=== PATIENT | female | born 1960 | race Caucasian/White ===

== ENCOUNTER 2023-02-11 06:57 | Day surgery (SDC) | payer OTHER, SELFPAY ==
--- NOTE | 2023-02-10 08:44 | HO.ANESPROP2 ---
Documented by User: Mirta Cool NP 02/10/23 08:44 HPI - Anesthesia Eval Consult details Narrative: 62yo F for Colonoscopy [facility] Past Medical History Medical History Diverticulosis Elevated cholesterol Thyroid nodule Vertigo Vitamin D deficiency Surgical History Surgical History Hx of colonoscopy Social History Social History Patient Tobacco Use Status: Never used Tobacco Are you DNR?: No Advance Directives: No Advance Directives Information Provided: Yes Nutrition Risks: No Nutritional Risk Meds Allergies Allergy/AdvReac Type Severity Reaction Status Date / Time Penicillins [PCN] Allergy Unknown Verified 02/11/23 07:21 sulfacetamide Allergy Unknown Verified 02/11/23 07:21 [From Sulfacet-R] sulfur [From Sulfacet-R] Allergy Unknown Verified 02/11/23 07:21 Home Medications Medication Instructions Recorded Confirmed Last Taken Type cholecalciferol (vitamin D3) 50 50 mcg PO DAILY 02/10/23 02/10/23 Unknown History mcg (2,000 unit) tablet (Vitamin D3) conjugated estrogens 0.625 mg/gram 0.625 mg vaginal DAILY 02/10/23 02/10/23 Unknown History vaginal cream (Premarin) Exam Exam Date and Time: February 10, 2023 0844 Assessment and Plan Assessment Anesthesia Assessment: Chart Reviewed Documented by User: Epifanio Carvalho MD 02/11/23 07:29 [facility] Past Medical History Medical History Diverticulosis Elevated cholesterol Thyroid nodule Vertigo Vitamin D deficiency Family History Family history of problems with anesthesia: No Surgical History Surgical History Hx of colonoscopy History of Problems with Anesthesia: No Social History Social History Patient Tobacco Use Status: Never used Tobacco Are you DNR?: No Advance Directives: No Advance Directives Information Provided: Yes Nutrition Risks: No Nutritional Risk Meds Allergies Allergy/AdvReac Type Severity Reaction Status Date / Time Penicillins [PCN] Allergy Unknown Verified 02/11/23 07:21 sulfacetamide Allergy Unknown Verified 02/11/23 07:21 [From Sulfacet-R] sulfur [From Sulfacet-R] Allergy Unknown Verified 02/11/23 07:21 Home Medications Medication Instructions Recorded Confirmed Last Taken Type cholecalciferol (vitamin D3) 50 50 mcg PO DAILY 02/10/23 02/10/23 Unknown History mcg (2,000 unit) tablet (Vitamin D3) conjugated estrogens 0.625 mg/gram 0.625 mg vaginal DAILY 02/10/23 02/10/23 Unknown History vaginal cream (Premarin) Exam Airway Mallampati Class: II TM Dist: >3cm Neck ROM: Full Heart: rrr Lungs: cta Assessment and Plan Assessment Anesthesia Assessment: Anesthesia Plan Discussed Final Anesthetic Review Family History of Problems with Anesthesia: No History of Problems with Anesthesia: No NPO: Yes ASA Class: II Final Preanesthetic Review: No Changes in Pt Med Stat, Meds/Allgs Chart Reviewed, Consent Obtained/Reviewed and Anes Risks/Benef Reviewed Patient Risk: Low Procedure Risk: Low Anesthetic Plan Anesthetic Plan: MAC: and Agree w/ Assess. and Plan Disposition: Standard PACU
[2023-02-11 06:07] VITALS: BMI 21.5
--- OUTSIDE RECORDS SUMMARY | 2023-02-11 07:00 | XMS_ITS | Continuity of Care Document ---
Author Name Unknown Organization [facility] Primary Car e Helper Address [address] [place] [address]- Care Team Providers Care Youth Corrections Officer Name Role Phone Selena SANTIAGO, Yolande Bellamy Primary Care Physician [phone] Encounter [facility] Date(s): 09/02/22 - 10/02/22 [facility] Care [place]essa [address] [place], [place] [address] Allergies, Adverse Reactions, Alerts Substance Reaction Severity Status cephalosporins Rash Active penicillins Active sulfa drugs Rash Active Immunizations Given and Recorded Vaccine Date Status Refusal Reason influenza virus vaccine, inactivated 06/30/22 Arnoldo rded influenza virus vaccine, inactivated 07/14/21 Arnoldo rded influenza virus vaccine, inactivated 07/04/20 Arnoldo rded influenza virus vaccine, inactivated 1 07/03/18 Re corded influenza virus vaccine, inactivated 2 07/25/17 Re corded SARS-CoV-2 (COVID-19) mRNA BNT-162b2 vac 07/29/21 Recorded SARS-CoV-2 (COVID-19) mRNA BNT-162b2 vac 10/07/20 Recorded SARS-CoV-2 (COVID-19) mRNA BNT-162b2 vac 3 09/16/20 Recorded tetanus/diphtheria/pertussis, acel(Tdap) 08/22/17 Given Adacel (Tdap) (oldterm) 4 05/18/07 Recorded 1Result Comment: [09/11/2018] pt had at wing through work 2Result Comment: [07/26/2017] employee health services 3Result Comment: Given by [facility] Pfizer SARS-COV-2 (COVID-19) vaccine, mRNA, spike protein, LNP, preservative free 4Location History: [employer] Medications D3 with Calcium By Mouth, Daily, 0 Refills, Maintenance, 09/30/20 9:51:00 EST, Partial fill upon patient request ifthe prescription is for a schedule II opioid drug. Start Date: 09/30/20 Status: Ordered ibuprofen 400 mg oral tablet 400 mg, 1, tablet, By Mouth, Every 6 hours, PRN, # 90 tablet, Refills 1, Tot. Refills 1, Maintenance, Pain , Mild, 09/30/20 10:53:00 EST, Route to Pharmacy Electronically, [facility]/pharmacy #[id number], Partialfill upon patient request if the prescription is fo... Start Date: 09/30/20 Status: Ordered Premarin Vaginal 0.625 mg/gm cream with applicator See Instructions, INSERT 1 GRAM VAGINALLY AT BEDTIME 2-3 TIMES PER WEEK, # 30 Gm, 5 Refills, Soft Stop, 05/24/22 12:58:00 EDT, [facility]/pharmacy #[id number], INSERT 1 GRAM VAGINALLY AT BEDTIME 2-3 TIMES PER WEEK, 170, cm, 09/30/20 9:40:00 EST, Height Start Date: 05/24/22 Status: Ordered Vitamin D3 2000 intl units oral capsule 1 capsule = 2,000 International_Units, By Mouth, Daily, # 60 capsule, 0 Refills, Maintenance, 09/30/20 9:50:00 EST, Capsule, Partial fill upon patient request if the prescription is for a schedule IIopioid drug. Start Date: 09/30/20 Status: Ordered Problem List Condition Confirmation Course Effective Dates Status H ealth Status Informant Diverticulosis of colon Confirmed Active Hyperlipidemia Confirmed Active Elevated glucose level Confirmed Active Thyroid nodule Confirmed Active Vertigo Confirmed Active Vitamin d deficiency Confirmed Active Social History Social History Type Response Smoking Status Never smoker entered on: 04/08/16 Sex Patient Care team information Care Team Personnel Name: Selena SANTIAGO, Yolande Bellamy Position: [facility] Primary Care Physician Member Role: PCP Address: Address: [address] [place] [address]- Care Team Related Persons Name: COMFORT MAYURI Address: [address] [address]
--- OUTSIDE RECORDS SUMMARY | 2023-02-11 07:00 | XMS_ITS | Continuity of Care Document ---
Author Name Unknown Organization [facility] Address [address] [place] [address]- Care Team Providers Care Food Mixer Repairer Name Role Phone Yolande Walters MD Primary Care Physician [phone] Encounter [facility] Date(s): 11/03/19 - 12/19/[address] [address]- [facility] Attending Physician: Yolande Walters MD Admitting Physician: Yolande Walters MD Referring Physician: Yolande Walters MD Allergies, Adverse Reactions, Alerts Substance Reaction Severity Status cephalosporins Rash Active penicillins Active sulfa drugs Rash Active Immunizations Given and Recorded Vaccine Date Status Refusal Reason influenza virus vaccine, inactivated 1 07/03/18 Re corded influenza virus vaccine, inactivated 2 07/25/17 Re corded tetanus/diphtheria/pertussis, acel(Tdap) 08/22/17 Given Adacel (Tdap) (oldterm) 3 05/18/07 Recorded 1Result Comment: [09/11/2018] pt had at wing through work 2Result Comment: [07/26/2017] employee health services 3Location History: [employer] Medications ibuprofen 600 mg oral tablet 600 mg, 1, tablet, By Mouth, 4 times a day, PRN, # 60 tablet, Refills 1, Tot. Refills 1, Maintenance, for pain, 09/11/18 11:19:31 EST, Route to Pharmacy Electronically, [id number], [facility]/pharmacy #[id number] Start Date: 09/11/18 Status: Ordered Premarin Vaginal 0.625 mg/gm cream with applicator See Instructions, INSERT 1 GRAM VAGINALLY AT BEDTIME 2-3 TIMES PER WEEK, # 30 Gm, 5 Refills, Soft Stop, 07/11/19 10:18:53 EDT, INSERT 1 GRAM VAGINALLY AT BEDTIME 2-3 TIMES PER WEEK Start Date: 07/11/19 Status: Ordered Problem List Condition Effective Dates Status Health Status Inform ant Diverticulosis of colon(Confirmed) Active Hyperlipidemia(Confirmed) Active Thyroid nodule(Confirmed) Active Vertigo(Confirmed) Active Vitamin d deficiency(Confirmed) Active Social History Social History Type Response Smoking Status Never smoker entered on: 04/08/16 Sex
--- OUTSIDE RECORDS SUMMARY | 2023-02-11 07:00 | XMS_ITS | Continuity of Care Document ---
Author Name Unknown Organization [facility] Primary Car e [place]essa Address [address] [place] [address]- Care Team Providers Care Announcer Name Role Phone Selena SANTIAGO, Yolande Bellamy Primary Care Physician [phone] Encounter [facility] Date(s): 05/24/22 - 09/11/22 [facility] Primary Care [place]essa [address] [place], [place] [address] Attending Physician: Jean-Pierre Koehler Allergies, Adverse Reactions, Alerts Substance Reaction Severity [...] employee health services 3Result Comment: Given by [facility] [email or web address] SARS-COV-2 (COVID-19) vaccine, mRNA, spike protein, LNP, preservative free 4Location History: [employer] Medications D3 with Calcium By Mouth, Daily, [...] 09/30/20 10:53:00 EST, Route to Pharmacy Electronically, [facility]/pharmacy #[id number], Partialfill upon patient request if the prescription is fo... Start Date: 09/30/20 Status: Ordered Premarin Vaginal 0.625 mg/gm cream with applicator See Instructions, INSERT 1 GRAM VAGINALLY AT BEDTIME 2-3 TIMES PER WEEK, # 30 Gm, 5 Refills, Soft Stop, 05/24/22 12:58:00 EDT, [facility]/pharmacy #[id number], INSERT 1 GRAM VAGINALLY AT BEDTIME [...] Personnel Name: Selena SANTIAGO, Yolande Bellamy Position: S Primary Care Physician Member Role: PCP Address: Address: [address] [place] [address]- Care Team Related Persons Name: MAYURI MOYER Address: [address] [address]
--- OUTSIDE RECORDS SUMMARY | 2023-02-11 07:00 | XMS_ITS | Continuity of Care Document ---
Author Name Unknown Organization [facility] Primary Car e [place] Address [address] [place] [address]- Care Team Providers Care Hydraulic Engineer Name Role Phone Selena SANTIAGO, Yolande Bellamy Primary Care Physician Encounter [facility] NBR [id number] Date(s): 10/24/20 - 11/23/20 [facility] [address] [place] [address]- Allergies, Adverse Reactions, Alerts Substance Reaction Severity Status cephalosporins Rash Active penicillins Active sulfa drugs Rash Active Immunizations Given and Recorded Vaccine Date Status Refusal Reason SARS-CoV-2 (COVID-19) mRNA BNT-162b2 vac 1 09/16/20 Recorded influenza virus vaccine, inactivated 07/04/20 Arnoldo rded influenza virus vaccine, inactivated 2 07/03/18 Re corded influenza virus vaccine, inactivated 3 07/25/17 Re corded tetanus/diphtheria/pertussis, acel(Tdap) 08/22/17 Given Adacel (Tdap) (oldterm) 4 05/18/07 Recorded 1Result Comment: Given by [facility] Employee Health Services [email or web address] SARS-COV-2 (COVID-19) vaccine, mRNA, spike protein, LNP, preservative free 2Result Comment: [09/11/2018] pt had at wing through work 3Result Comment: [07/26/2017] employee health services 4Location History: [employer] Problem List Condition Effective Dates Status Health Status Inform ant Diverticulosis of colon(Confirmed) Active Hyperlipidemia(Confirmed) Active Elevated glucose level(Confirmed) Active Thyroid nodule(Confirmed) Active Vertigo(Confirmed) Active Vitamin d deficiency(Confirmed) Active Social History Social History Type Response Smoking Status Never smoker entered on: 04/08/16 Sex
--- OUTSIDE RECORDS SUMMARY | 2023-02-11 07:00 | XMS_ITS | Continuity of Care Document ---
Author Name Unknown Organization [facility] Address [address] [place] [address]- Care Team Providers Care Casting Wheel Operator Helper Name Role Phone Yolande Walters MD Primary Care Physician Encounter [facility] Date(s): 11/13/19 - 12/30/[address] [address]- [facility] Attending Physician: Yolande Walters MD Admitting Physician: [...] Comment: [07/26/2017] employee health services 3Location History: [employer] Medications ibuprofen 600 mg oral tablet 600 mg, 1, tablet, By Mouth, 4 times a day, PRN, # 60 tablet, Refills 1, Tot. Refills 1, Maintenance, for pain, 09/11/18 11:19:31 EST, Route to Pharmacy Electronically, [id number], [facility]/pharmacy #[id number] Start Date: 09/11/18 Status: Ordered Premarin [...]
--- OUTSIDE RECORDS SUMMARY | 2023-02-11 07:00 | XMS_ITS | Continuity of Care Document ---
Author Name Unknown Organization [facility] Primary Car e [place] Address [address] [place] [address]- Care Team Providers Care Steam Pressure Chamber Operator Name Role Phone Selena SANTIAGO, Yolande Bellamy Primary Care Physician Encounter [facility] NBR [id number] Date(s): 10/24/20 - 11/23/20 [facility] [address] [place], [place] [address] Allergies, Adverse Reactions, Alerts Substance Reaction Severity [...] 4 05/18/07 Recorded 1Result Comment: Given by [facility] Employee Health Services [employer] SARS-COV-2 (COVID-19) vaccine, mRNA, spike protein, LNP, preservative free 2Result Comment: [09/11/2018] pt had at wing through work 3Result Comment: [07/26/2017] employee health services 4Location History: [employer] Problem List Condition Effective Dates Status Health Status Inform ant Diverticulosis of colon(Confirmed) Active Hyperlipidemia(Confirmed) Active Elevated glucose level(Confirmed) Active Thyroid nodule(Confirmed) Active Vertigo(Confirmed) Active Vitamin d deficiency(Confirmed) Active Social History Social History Type Response Smoking Status Never smoker entered on: 04/08/16 Sex
--- OUTSIDE RECORDS SUMMARY | 2023-02-11 07:00 | XMS_ITS | Continuity of Care Document ---
Author Name Unknown Organization [facility] Primary Car e [place] Address [address] [place] [address]- Care Team Providers Care Ship Erector Name Role Phone Selena SANTIAGO, Yolande Bellamy Primary Care Physician Encounter [facility] Date(s): 09/27/22 - 10/27/22 [facility] Primary Care [place] [address] [place], [place] [address] Allergies, Adverse Reactions, Alerts Substance Reaction Severity [...] employee health services 3Result Comment: Given by [facility] Pfizer SARS-COV-2 (COVID-19) vaccine, mRNA, spike protein, LNP, preservative free 4Location History: [employer] Medications D3 with Calcium By Mouth, Daily, [...] 09/30/20 10:53:00 EST, Route to Pharmacy Electronically, [facility]/pharmacy #[id number], Partialfill upon patient request if the prescription is fo... Start Date: 09/30/20 Status: Ordered Premarin Vaginal 0.625 mg/gm cream with applicator See Instructions, INSERT 1 GRAM VAGINALLY AT BEDTIME 2-3 TIMES PER WEEK, # 30 Gm, 5 Refills, Soft Stop, 05/24/22 12:58:00 EDT, [facility]/pharmacy #[id number], INSERT 1 GRAM VAGINALLY AT BEDTIME [...] Personnel Name: Selena SANTIAGO, Yolande Bellamy Position: [facility] Primary Care Physician Member Role: PCP Address: Address: [address] [place] [address]- Care Team Related Persons Name: MAYURI MOYER Address: home [address] [place] [address]
--- OUTSIDE RECORDS SUMMARY | 2023-02-11 07:00 | XMS_ITS | Continuity of Care Document ---
Author Name Unknown Organization [facility] Primary Car e [place] Address [address] [place] [address]- Care Team Providers Care Candy Separator Enrobing Name Role Phone Yolande Walters MD Primary Care Physician [phone] [facility] [id number] Date(s): 07/02/20 - 10/30/20 [facility] Primary Care [address] [address] Attending Physician: Yolande Walters MD Admitting Physician: Yolande Walters MD Allergies, Adverse Reactions, [...] 4 05/18/07 Recorded 1Result Comment: Given by [facility] Employee Health Services Pfizer SARS-COV-2 (COVID-19) vaccine, mRNA, spike protein, LNP, preservative free 2Result Comment: [09/11/2018] pt had at wing through work 3Result Comment: [07/26/2017] employee health services 4Location History: [employer] Problem List Condition Effective Dates Status Health Status Inform ant Diverticulosis of colon(Confirmed) Active Hyperlipidemia(Confirmed) Active Elevated glucose level(Confirmed) Active Thyroid nodule(Confirmed) Active Vertigo(Confirmed) Active Vitamin d deficiency(Confirmed) Active Social History Social History Type Response Smoking Status Never smoker entered on: 04/08/16 Sex
--- OUTSIDE RECORDS SUMMARY | 2023-02-11 07:00 | XMS_ITS | Continuity of Care Document ---
Author Name Unknown Organization [facility] Primary Car e [place] Address [address] [place] [address]- Care Team Providers Care Edge Setter Name Role Phone Selena SANTIAGO, Yolande Bellamy Primary Care Physician [id number] Date(s[facility] 10/27/20 - 11/26/20 [facility] [address] [place], [place] [address] Allergies, Adverse Reactions, Alerts Substance Reaction [...] 4 05/18/07 Recorded 1Result Comment: Given by [facility] Employee Health Services [employer] SARS-COV-2 (COVID-19) vaccine, mRNA, spike protein, LNP, preservative free 2Result Comment: [09/11/2018] pt had at wing through work 3Result Comment: [07/26/2017] employee health services 4Location History: [employer] Problem List Condition Effective Dates Status Health Status Inform ant Diverticulosis of colon(Confirmed) Active Hyperlipidemia(Confirmed) Active Elevated glucose level(Confirmed) Active Thyroid nodule(Confirmed) Active Vertigo(Confirmed) Active Vitamin d deficiency(Confirmed) Active Social History Social History Type Response Smoking Status Never smoker entered on: 04/08/16 Sex
--- OUTSIDE RECORDS SUMMARY | 2023-02-11 07:00 | XMS_ITS | Continuity of Care Document ---
Author Name Unknown Organization [facility] Primary Car e [place]essa Address [address] [place] [address]- Care Team Providers Care Pearl Hand Name Role Phone Yolande Walters MD Primary Care Physician [phone] Encounter [facility] Date(s): 07/07/21 - 11/04/21 [facility] Primary Care [place]essa [address] [place], [place] [address] Attending Physician: Yolande Walters MD Allergies, Adverse Reactions, Alerts Substance Reaction Severity Status cephalosporins Rash Active penicillins Active sulfa drugs Rash Active Immunizations Given and Recorded Vaccine Date Status Refusal Reason SARS-CoV-2 (COVID-19) mRNA BNT-162b2 vac 07/29/21 Recorded SARS-CoV-2 (COVID-19) mRNA BNT-162b2 vac 10/07/20 Recorded SARS-CoV-2 (COVID-19) mRNA BNT-162b2 vac 1 09/16/20 Recorded influenza virus vaccine, inactivated 07/14/21 Arnoldo rded influenza virus vaccine, inactivated 07/04/20 Arnoldo rded influenza virus vaccine, inactivated 2 07/03/18 Re corded influenza virus vaccine, inactivated 3 07/25/17 Re corded tetanus/diphtheria/pertussis, acel(Tdap) 08/22/17 Given Adacel (Tdap) (oldterm) 4 05/18/07 Recorded 1Result Comment: Given by [facility] Employee Health Services Pfizer SARS-COV-2 (COVID-19) vaccine, mRNA, spike protein, LNP, preservative free 2Result Comment: [09/11/2018] pt had at wing through work 3Result Comment: [07/26/2017] employee health services 4Location History: [employer] Problem List Condition Effective Dates Status Health Status Inform ant Diverticulosis of colon(Confirmed) Active Hyperlipidemia(Confirmed) Active Elevated glucose level(Confirmed) Active Thyroid nodule(Confirmed) Active Vertigo(Confirmed) Active Vitamin d deficiency(Confirmed) Active Social History Social History Type Response Smoking Status Never smoker entered on: 04/08/16 Sex
--- OUTSIDE RECORDS SUMMARY | 2023-02-11 07:00 | XMS_ITS | Continuity of Care Document ---
Author Name Unknown Organization [facility] Primary [facility] [place] [facility] [place] Address [address] [place] [address]- Care Team Providers Care Instructional Assistant Name Role Phone Selena SANTIAGO, Yolande Bellamy Primary Care Physician [phone] Encounter [facility] Date(s): 09/30/20 - 10/30/20 [facility] Care [address] [address] Attending Physician: Bibi Freedman Admitting Physician: Bibi Freedman Referring Physician: Bibi Freedman Allergies, Adverse Reactions, Alerts Substance Reaction Severity [...] 4 05/18/07 Recorded 1Result Comment: Given by [facility] Employee Health Services [employer] SARS-COV-2 (COVID-19) vaccine, mRNA, spike protein, LNP, preservative free 2Result Comment: [09/11/2018] pt had at wing through work 3Result Comment: [07/26/2017] employee health services 4Location History: [employer] Problem List Condition Effective Dates Status Health Status Inform ant Diverticulosis of colon(Confirmed) Active Hyperlipidemia(Confirmed) Active Elevated glucose level(Confirmed) Active Thyroid nodule(Confirmed) Active Vertigo(Confirmed) Active Vitamin d deficiency(Confirmed) Active Social History Social History Type Response Smoking Status Never smoker entered on: 04/08/16 Sex
--- OUTSIDE RECORDS SUMMARY | 2023-02-11 07:00 | XMS_ITS | Continuity of Care Document ---
Author Name Unknown Organization [facility] Primary Car e [place] Address [address] [place] [address]- Care Team Providers Care Hosiery Knitter Name Role Phone Selena SANTIAGO, Yolande Bellamy Primary Care Physician [phone] Encounter [facility] Date(s): 05/16/20 - 06/15/20 [facility] Primary Care [address] [address]- [facility] Allergies, Adverse Reactions, Alerts Substance Reaction Severity [...] Comment: [07/26/2017] employee health services 3Location History: [employer] Medications ibuprofen 600 mg oral tablet 600 mg, 1, tablet, By Mouth, 4 times a day, PRN, # 60 tablet, Refills 1, Tot. Refills 1, Maintenance, for pain, 09/11/18 11:19:31 EST, Route to Pharmacy Electronically, [id number], [facility]/pharmacy #[id number] Start Date: 09/11/18 Status: Ordered [...]
--- OUTSIDE RECORDS SUMMARY | 2023-02-11 07:00 | XMS_ITS ---
Author Name Angelo Hurley Jr Address [address] [place] [address] Organization [facility] Address [address] [place] [address] Care Team Providers Care Papier Mache' Molder Name Role Phone Angelo Hurley Jr Unavailable PROBLEMS Unknown Problems ALLERGIES Substance Reaction Event Type Date Status Penicillin Unknown Drug Allergy January, Active Sulfacet-R Unknown Drug Allergy January, Active ENCOUNTERS Encounter Location Date Diagnosis [facility] Outpatient [address], [place] [id number] Feb, [facility] [address] [place] [address] Dec, Colon cancer screening Z12.11 and Encounter for other preprocedural examination Z01.818 IMMUNIZATIONS Vaccine Route Administration Date Status Influenza Unknown Jun 29, 2022 Administered SOCIAL HISTORY Qualifiers Date Never Smoker REASON FOR REFERRAL FUNCTIONAL STATUS PLAN OF CARE Activity Details VITAL SIGNS Weight 137 lbs 2022-12-13 Height 67 in 2022-12-13 BMI 21.45 kg/m2 2022-12-13 Temperature 98.0 degrees Fahrenheit Blood pressure systolic 000 mm Hg Blood pressure diastolic 00 mm Hg 2022-12 MEDICATIONS Medication Instructions Dosage Frequency Start Date End Date Duration Status MiraLax (colon prep) 17 GM/SCOOP Orally begin at 5:00 p.m. the day before the procedure mixed with Gatorade or Crystal Light Dec, 1 day Active Premarin 0.625 MG/GM as directed Active Vitamin D 50 MCG (1999 UT) Orally Once a day 1 tablet 24h 30 day(s) Active PROCEDURES Procedure Date Ordered Result Body Site DOC RSN FOR NOT SCREEN/REC F/U HBP December 13, 2022 Pt scrn tbco id as non user December 13, 2022 DOC MEDS VERIFIED W/PT OR RE December 13, 2022 COLORECTAL CA SCREEN DOC REV December 13, 2022 RESULTS No Results REASON FOR VISIT screening, Patient presents today for a colon screening Insurance Providers Health Insurance Type Health Plan Insurance Address Health Plan Insurance Phone Health Plan Insurance Name Health Plan Coverage Dates Member ID Patient Relationship to Subscriber Patient Address Patient Phone Patient Name Patient Date of Subscriber ID Subscriber Name Subscriber Date of [facility] [address] [place] [address] [facility] self LANA MOYER [id number]
[2023-02-11] MEDS: Lactated Ringers 1,000 ML 100 ML IVCONT (07:12)
[2023-02-11 07:20] VITALS: BP 150/76; PULSE 73; RESP 18; TEMP 36.7; O2SAT 98
--- NOTE | 2023-02-11 08:15 | P.HPSUR_ITS ---
Pre-Procedural Eval Section A Date of Service: 02/11/23 Section B Chief Complaint: screening Details of Present Illness: see H&P no changes Relevant Family History (Specify if Yes): No Relevant Social History: None Present Medications: see Short Stay Collaborative assessment Medical History: No relevant PMH History of Previous Operations: No relevant previous surgery Allergies: Allergies Allergy/AdvReac Type Severity Reaction Status Date / Time Penicillins [PCN] Allergy Unknown Verified 02/11/23 07:21 sulfacetamide Allergy Unknown Verified 02/11/23 07:21 [From Sulfacet-R] sulfur [From Sulfacet-R] Allergy Unknown Verified 02/11/23 07:21 Review of Systems Sugical H&P ROS: Negative: Constitution, Cardiovascular, Respiratory, Neurological, Psychiatric, Hem-Onc, Allergic/Immunologic, Gastrointestinal, Genitourinary, Musculoskeletal, Integumentary, Endocrine and Eyes/Ears/Nose/Throat Exam Surgical H&P Exam: Normal: HEENT, Normal: Heart, Normal: Lungs, Normal: Extre mities, Normal: Abdomen, Normal: Skin and Normal: Neurological Plan Diagnosis/Plan: Unchanged I have reviewed the history and physical and performed a pertinent physical examination on my patient. No changes have occurred unless specified. Time Spent With Patient Time: Total time managing care of this patient today ____ minutes.
[2023-02-11 08:45] VITALS: BP 103/61; PULSE 80; RESP 16; TEMP 36.3; O2SAT 96
--- NOTE | 2023-02-11 08:53 | PM.OP ---
Brief Operative Note Date of Service: 02/11/23 Pre-op diagnosis: screening Post-op diagnosis: same Procedure: colonscolpy Surgeon: Angelo Hurley Anesthesia: MAC Was an Chief Innovation Officer used for this Procedure?: No Estimated blood loss (mL): 2 Pathology: other Condition: stable Disposition: PACU
[2023-02-11 09:00] VITALS: BP 119/68; PULSE 66; RESP 18; TEMP 36.8; O2SAT 97
--- NOTE | 2023-02-11 09:25 | OP_ITS ---
DATE OF SERVICE: 02/11/2023 SURGEON: Angelo Hurley MD INDICATIONS: Colon cancer screening. PREOPERATIVE DIAGNOSIS: POSTOPERATIVE DIAGNOSIS: PROCEDURE PERFORMED: Colonoscopy to the terminal ileum with biopsy. ESTIMATED BLOOD LOSS: COMPLICATIONS: ANESTHESIA: Monitored anesthesia care. ASSISTANTS: SPECIMENS: DESCRIPTION OF PROCEDURE: History and physical was performed. The risks and benefits of the procedure were explained to the patient. Informed consent was obtained. The patient was placed in the left lateral decubitus position. A digital rectal exam was performed and was found to be normal. The Olympus pediatric video colonoscope was introduced into the rectum and advanced to the cecum without difficulty. The cecum was identified by transillumination, palpation, and identification of ileocecal valve. Examination was performed. The scope was removed. She tolerated the procedure well and was returned to the recovery area in stable condition. FINDINGS: The terminal ileum was examined and appeared normal. The visualized colonic mucosa was normal. The quality of the prep was good. In the cecum was a less than 5 mm polyp, which was removed with biopsy forceps. No other polyps were identified. There was mild sigmoid diverticulosis. Retroflexed examination showed some small internal hemorrhoids. IMPRESSION: Colon polyp. RECOMMENDATION: Follow up the biopsy results. MD HALI King/AVINASHL / [id number]
== END 2023-02-11 09:30 | disposition home or self-care (01) ==
PROVIDERS: PCP Internal Medicine Geriatric Medicine; Visit Provider Internal Medicine Gastroenterology
PROC: 0DJD8ZZ Inspection of Lower Intestinal Tract, Via Natural or Artificial Opening Endoscopic (ICD-10-PCS; CPT 45378; principal; 2023-02-11 08:10)
DX: Z12.11 Encounter for screening for malignant neoplasm of colon (principal); D12.0 Benign neoplasm of cecum; K57.30 Diverticulosis of large intestine without perforation or abscess without bleeding; K64.8 Other hemorrhoids; E78.5 Hyperlipidemia, unspecified; E04.1 Nontoxic single thyroid nodule; R73.9 Hyperglycemia, unspecified; E55.9 Vitamin D deficiency, unspecified; R42 Dizziness and giddiness; Z79.899 Other long term (current) drug therapy; Z88.0 Allergy status to penicillin; Z88.2 Allergy status to sulfonamides
CPT/HCPCS: 45380; 88305